=== PATIENT | female | born 1930 | race Caucasian/White ===

== ENCOUNTER → 2016-11-18 | Outpatient (REF) ==
[~2016-11-18] MED LIST: ATENOLOL50 MG PO; ATIVAN 0.50.5 MG/TAB PO; ATOXIMETIN-B1 CAP PO; CALCIUM + D 6001 TAB PO; CALTRATE 600 +1 TAB PO; CALTRATE-600 W600 MG PO; COLACE 100100 MG/CAP PO; DITROPAN 5MG TAB5 MG PO; DOCUSATE CALCI100 MG PO; FOSAMAX 70MG TA70 MG PO; HCTZ; HCTZ 25MG TAB25 MG PO; HCTZ12.5TAB PO; HYDROCHLOROTH12.5 M1 PO; IBUPROFEN 200200 MG PO; KLOR-CON 1010 MEQ PO; LEADER CLE17 GM/Dose PO; LEVAQUIN 5500 MG/TA1 PO; LIQUIFILM TEARS15 ML OP; NAPROXEN EC500 MG PO; NORCO 325 MG-51 TAB PO; NYSTATIN OR100 MU/ML PO; OMEGA-3 FISH1000 MG PO; OXYBUTYNIN5 MG PO; PRILOSEC 20MG20 MG PO; SIMVASTATIN20 MG PO; STOOL SOFTENER100 M2 PO; TEMOVATEE15CR TOP; TENORMIN 5050 MG/TAB PO; VALIUM 2MG T2 MG/TAB PO; VITAMIN D 400400 IU PO; VITAMIN D NATU400 IU PO; VITAMIN D3400 I1 PO; ZOCOR 20MG20 MG PO
[2016-11-18 11:17] LABS: BASO # 0.1 (0.0-0.2); BASO % 0.9 % (0.0-2.0); EOS # 0.1 (0.0-0.7); GRAN % 69.6 % (42.2-75.2); LYMPH # 1.2 (1.2-3.4); LYMPH % 20.3 % (20.0-51.0); MEAN CELL VOLUME 93 fl (80.0-100.0); MEAN CORPUSCULAR HGB CONC 32 g/dl (33.0-37.0); MEAN PLATELET VOLUME 9.6 fl (7.4-10.4); MONO # 0.4 (0.1-0.6); MONO % 7.3 % (1.7-9.3); PLATELET COUNT 380 K/mm3 (130-400); RED BLOOD COUNT 3.89 M/mm3 (4.10-5.30); REDCELL DISTRIBUTION WIDTH-CV 13.8 % (11.5-14.5); WHITE BLOOD COUNT 5.8 K/mm3 (4.8-10.8)
[2016-11-18 11:19] LABS: HEMOGLOBIN 11.6 g/dl (12.5-16.0); MEAN CORPUSCULAR HEMOGLOBIN 30 pg (27.0-31.0)
== END ==
LOC: ZLAB.STJ 08:49
PROVIDERS: Internal Medicine
DX: Z01.89 Encounter for other specified special examinations (principal)

== ENCOUNTER 2017-01-25 14:22 | Emergency (ER) | payer MEDICARE, BC ==
[~2017-01-25] VITALS: Ht 144.8 cm; Wt 58.6 kg
[2017-01-25 14:24] VITALS: BP 177/77; TEMP 97.5
[2017-01-25] MEDS ORDERED: NORCO 325 MG-51 TAB PO (16:28)
[2017-01-25 17:36] VITALS: PULSE 55
== END 2017-01-25 17:32 | disposition home or self-care (01) ==
LOC: COL.ER 14:22
DX: S22.31XA Fracture of one rib, right side, initial encounter for closed fracture (principal); I10 Essential (primary) hypertension; W01.198A Fall on same level from slipping, tripping and stumbling with subsequent striking against other object, initial encounter; Y92.009 Unspecified place in unspecified non-institutional (private) residence as the place of occurrence of the external cause
CPT/HCPCS: A9284; J1170

== ENCOUNTER → 2018-04-02 | Outpatient (CLI) | payer MEDICARE, BC | LOC: MC.RAD 13:17 | DX: Z12.31 Encounter for screening mammogram for malignant neoplasm of breast (principal) ==

== ENCOUNTER 2018-08-16 15:25 | Outpatient (CLI) | payer MEDICARE, BC ==
[~2018-08-16] VITALS: Ht 144.8 cm; Wt 58.0 kg
[~2018-08-16 15:25] MED LIST changes: -VITAMIN D3400 I1 PO
[2018-08-16 15:47] VITALS: BP 133/58; PULSE 55; TEMP 97.8
[2018-08-16] MEDS ORDERED: OCUVITE1 TA1 PO (15:50)
[2018-08-16] MEDS ORDERED: ZANTAC 150MG T150 MG PO (15:51)
[2018-08-16] MEDS ORDERED: HCTZ 25MG TAB25 MG PO (15:52)
[2018-08-16] MEDS ORDERED: GINKGO60 MG PO (15:56)
[2018-08-16] MEDS ORDERED: TYLENOL 8 HR PO (15:57)
== END 2018-08-16 16:40 | disposition home or self-care (01) ==
LOC: EUO 15:25
DX: M81.0 Age-related osteoporosis without current pathological fracture (principal)
CPT/HCPCS: J3489

== ENCOUNTER → 2019-08-11 | Outpatient (CLI) | payer MEDICARE, BC ==
[~2019-08-11] VITALS: Ht 144.8 cm; Wt 55.7 kg
[~2019-08-11] MED LIST changes: +BIOTENE MOIST44.3 ML PO; +CLARITIN 1010 MG/TAB PO; +D3-5050000 IU; +GINKGO60 MG PO; +ICAPS AREDS SO1 EACH PO; +LIQUIFILM TEARS15 ML OU; +NYSTATIN POWDER30 GM TOP; +OCUVITE1 TA1 PO; +RECLAST5 MG/100 M IV; +TYLENOL 8 HR PO; +VITAMIN C500 MG PO; +ZANTAC 150MG T150 MG PO
[2019-08-11 17:21] VITALS: BP 149/50; PULSE 52; TEMP 97.9
== END ==
LOC: EUO 16:30
DX: M81.0 Age-related osteoporosis without current pathological fracture (principal)
CPT/HCPCS: J3489